=== PATIENT | female | born 1950 | race Caucasian/White ===

== ENCOUNTER → 2017-05-31 | Outpatient (CLI) | payer OTHER ==
[~2017-05-31] MED LIST: ACE500 PO; DIA5 PO; FISH OIL1 CAP PO; MECL-205 PO; METO25TA23 PO; METO50TA19 PO; MULT-1335 PO; NO ROUTINE MEDS; PER PO
--- NOTE | 2017-06-01 14:43 | RADIOLOGY IMAGING REPORT ---
FACILITY: [facility] PATIENT NAME: ANTWAN GRUBBS : [id number] MR: [id number] V: [id number] EXAM DATE: ORDERING PHYSICIAN: MIGUEL DE LA CRUZ TECHNOLOGIST: Xavi Castaneda PROCEDURE: ECHO STRESS WITH CONTRAST COMPARISON: None. INDICATIONS: ABN EKG/? MYOCARDIAL INFARCTION. FINDINGS: After informed consent the patient was exercised using the Diego protocol. She was able to complete the end of Stage 3 of the Diego protocol at which time she achieved 10.1 Mets & 94% of her predicted maximum heart rate. Definity contrast was used. Baseline EKG showed normal sinus rhythm within normal limits. Patient had no symptoms. There were no ST segment changes of ischemia & there were no arrhythmias noted. ECHOCARDIOGRAPHIC PORTION OF THE STRESS TEST: At rest the patient had normal left ventricular ejection fraction of 75% but with a mild to borderline moderate amount of diastolic function. Trace of mitral & tricuspid insufficiency was noted. Estimated right ventricular systolic pressures within normal ranges at 25mm Hg. With exercise the patient had normal hyperdynamic response to exercise with no left ventricular segmental wall motion abnormalities. CONCLUSION: 1. Normal stress Echocardiograph with normal LV function systolically at rest with hyperdynamic response to exercise & low probability of ischemia. 2. Mild to borderline moderate decrease in diastolic function. 3. Trace of mitral & tricuspid insufficiency with normal right ventricular systolic pressures. No other abnormalities were noted. Dictated by: Kristian Leiva M.D. on 05/31/2017 at 18:52 Transcribed by: INEZ on 06/01/2017 at 10:42 Approved by: Kristian Leiva M.D. on 06/01/2017 at 14:42 [facility]
== END ==
LOC: RESP 00:43
PROVIDERS: ATTEND Internal Medicine Cardiovascular Disease
DX: R07.2 Precordial pain (principal); I34.0 Nonrheumatic mitral (valve) insufficiency; I36.1 Nonrheumatic tricuspid (valve) insufficiency
CPT/HCPCS: 93017; 93325; 93350; 93352; Q9957